=== PATIENT | male | born 1940 | race Caucasian/White ===

== ENCOUNTER 2023-10-05 22:22 | Emergency (ER) | payer MEDICARE, OTHER ==
[2023-10-05] MEDS: Ondansetron 4 MG/2 ML SDV ONE (23:11)
[2023-10-05] MEDS ORDERED: Naloxone 0.4 MG/ML SDV IVPUSH PRN (23:12)
[2023-10-05] MEDS: fentaNYL 100 MCG/2 ML SDV ONE (23:14)
[2023-10-05] MEDS: fentaNYL 100 MCG/2 ML SDV IVPUSH ONE (23:15)
[2023-10-05] MEDS ORDERED: Sodium Chloride 0.9% 10 ML Syringe FLUSH PRN (23:34)
[2023-10-05] MEDS: Sodium Chloride 0.9% 500 ML IV ONE (23:50)
[2023-10-05 23:52] LABS: BASOPHILS PERCENT AUTO 0.1 % (0.0-1.0); EOSINOPHILS PERCENT AUTO 0.1 % (0.0-6.0); HEMATOCRIT 44.9 % (42.0-52.0); HEMOGLOBIN 14.2 gm/dl (14.0-18.0); IMMATURE GRAN ABSOLUTE AUTO 0.13 K/mm3 (0.00-0.05); IMMATURE GRAN PERCENT AUTO 0.7 % (0.0-0.4); LYMPHOCYTES ABSOLUTE AUTO 3.4 K/mm3 (1.0-4.8); LYMPHOCYTES PERCENT AUTO 18.2 % (24.0-44.0); MEAN CORPUSCULAR HEMOGLOBIN 28.5 pg (28.0-32.0); MEAN CORPUSCULAR HGB CONC 31.6 g/dl (32.0-36.0); MEAN CORPUSCULAR VOLUME 90.2 fl (83.0-99.0); MEAN PLATELET VOLUME 9.5 fl (9.4-12.4); MONOCYTES ABSOLUTE AUTO 1.2 K/mm3 (0.0-0.8); MONOCYTES PERCENT AUTO 6.6 % (0.0-8.0); NEUTROPHILS ABSOLUTE AUTO 13.8 K/mm3 (1.8-7.7); NEUTROPHILS PERCENT AUTO 74.3 % (41.0-71.0); PLATELET COUNT,PLT 259 K/mm3 (150-400); RED BLOOD CELL COUNT 4.98 M/mm3 (4.52-5.90); WHITE BLOOD CELL COUNT,WBC 18.56 K/mm3 (3.9-11.3)
[2023-10-06] MEDS: Sodium Chloride 0.9% 100 ML IV SCH (00:20)
[2023-10-06] MEDS: Iopamidol 755 Mg/ML 100 ML Bottle IVPUSH ONE (00:20)
[2023-10-06 00:25] LABS: INR 1.08; PROTHROMBIN TIME 11.4 SECONDS (9.7-12.0)
[2023-10-06 00:26] LABS: PTT,PARTIAL THROMBOPLSTIN TIME 23.6 SECONDS (21.7-31.4)
[2023-10-06 00:37] LABS: A/G RATIO 1.2 (1-2); ALBUMIN 4.2 g/dl (3.4-5.0); ANION GAP 27.6 (5-15); BILIRUBIN TOTAL 3.6 mg/dL (0.2-1.0); CREATININE 2.5 mg/dL (0.7-1.3); EST CRCL DRUG DOSING (CG) 20.2 mL/min; POTASSIUM,K 3.6 mEq/L (3.5-5.1); PROTEIN TOTAL,TP 7.8 g/dl (6.4-8.2)
[2023-10-06 00:46] LABS: MAGNESIUM 2.4 mg/dL (1.8-2.4)
[2023-10-06] MEDS: Piperacillin/Tazobactam 4.5 GM in Sodium Chloride 0.9% 100 ML IV ONE (00:57)
[2023-10-06] MEDS: fentaNYL 100 MCG/2 ML SDV IVPUSH ONE ×2 (00:58→06:19)
[2023-10-06] MEDS ORDERED: Naloxone 0.4 MG/ML SDV IVPUSH PRN (00:58)
[2023-10-06] MEDS: metroNIDAZOLE/Normal Saline 500 MG in Premix Bag 1 BAG IV ONE (00:58)
[2023-10-06 01:00] LABS: LACTIC ACID 12.2 mmol/L (0.4-2.0)
[2023-10-06] MEDS: Sodium Chloride 0.9% 1,000 ML ONE (01:01)
[2023-10-06] MEDS: Sodium Chloride 0.9% 1,000 ML IV ONE (01:04)
[2023-10-06] MEDS: Sodium Bicarbonate 8.4% 50 MEQ/50 ML Syringe IVPUSH ONE ×2 (01:05→01:09)
[2023-10-06] MEDS ORDERED: Lactated Ringers 1,000 ML IV ONE ×2 (01:09→06:13)
[2023-10-06] MEDS: Piperacillin/Tazobactam 4.5 GM Vial ONE (01:11)
[2023-10-06] MEDS: Sodium Chloride 0.9% 250 ML ONE (01:11)
[2023-10-06] MEDS: Lactated Ringers 1,000 ML ONE (02:03)
[2023-10-11] MEDS: Sodium Chloride 0.9% 1,000 ML IV ONE (14:02)
== END 2023-10-06 02:33 ==
LOC: JD.ED 22:22 → EDBD 22:22 → JD.ED 10-06 02:33
DX: K63.1 Perforation of intestine (nontraumatic) (principal); K55.069 Acute infarction of intestine, part and extent unspecified; R10.12 Left upper quadrant pain; R74.8 Abnormal levels of other serum enzymes; R94.31 Abnormal electrocardiogram [ECG] [EKG]; N17.9 Acute kidney failure, unspecified
CPT/HCPCS: 36415; 71045; 71275; 74177; 80053; 80179; 83605; 83690; 83735; 83880; 84484; 85025; 85610; 85730; 86850; 86900; 86901; 87040; 93005; 96361; 96365; 96367; 96375; 96376; 99285; J1836; J2405; J2543; J3010; J3490; J7030; J7050; J7120; Q9967; 93010; 99291; 99292